=== PATIENT | male | born 1970 | race Caucasian/White ===

== ENCOUNTER → 2017-05-26 | Outpatient (CLI) | payer OTHER ==
[~2017-05-26] MED LIST: ACETAZOLAMIDE250 M2 PO; APAP650 PO; ASPIR 8181 MG PO; ASPIRIN325 PO; ATORVASTATIN CA40 MG PO; EFFEXOR XR150 MG PO; FISH OIL OMEGA1 EAC2 PO; FOLBIC RF TABL1 EACH PO; KLONOPIN0.5 MG PO; LIPITOR 20 MG T20 M1 PO; MAGNESIUM OXID400 MG PO; MAGOX 400400 MG PO; METOPROLOL SUCC25 M1 PO; MINIPRESS2 MG PO; NIACIN 500 MG500 M1 PO; NIACIN SR 250250 MG PO; OLANZAPINE20 MG PO; PRILOSEC OTC20 MG PO; REMERON15 MG PO; STOOL SOFTENER1 EAC2 PO; STOOL SOFTENER100 MG PO; TRICOR145 MG PO; TYLENOL ARTHRI650 MG PO; VITAMIN D3400 UNIT PO; WELCHOL 625 MG625 MG PO; WELLBUTRIN XL150 MG PO; WELLBUTRIN XL300 MG PO
[2017-05-26 12:32] LABS: ALBUMIN 4.2 g/dL (3.4-5.0); ALKALINE PHOSPHATASE 66 U/L (46-116); ANION GAP 9 mmol/L (7-16); BUN 23 mg/dL (7-18); CALCIUM 9.3 mg/dL (8.5-10.1); CHLORIDE 108 mmol/L (98-107); CHOLESTEROL 236 mg/dL (<200); CO2 26 mmol/L (21-32); CREATININE 1.4 mg/dL (0.6-1.3); GLUCOSE 97 mg/dL (70-99); HDL CHOLESTEROL 34 mg/dL (>40); POTASSIUM 4.1 mmol/L (3.5-5.1); SGOT 20 U/L (15-37); SGPT 30 U/L (30-65); SODIUM 143 mmol/L (136-145); TC:HDL 6.9 Ratio (Not establshd); TOTAL BILIRUBIN 0.3 mg/dL (<0.1-1.0); TRIGLYCERIDE 434 mg/dL (<150); VLDL 87 mg/dL (<40)
[2017-05-26 12:35] LABS: LDL CHOLESTEROL ND mg/dL (<100); SERUM ASSESSMENT Clear
[2017-05-27 02:07] LABS: TESTOSTERONE 141 ng/dL (264-916)
== END ==
LOC: M.LAB 11:53
PROVIDERS: Family Medicine
DX: E29.1 Testicular hypofunction (principal)

== ENCOUNTER → 2017-06-27 | Outpatient (CLI) | payer OTHER ==
--- NOTE | 2017-07-01 09:29 | SLEEP ---
[address] [address] SLEEP STUDY REPORT Name: LAURA MALDONADO Room: [facility]#: [id number] Admission: 06/27/17 Attend Phys: Medhat Niocle III, DO Discharge: Date of : 66 Report #: [id number] THIS REPORT FOR: //name// CC: Medhat Nicole This study has been reviewed in its entirety by a board certified sleep specialist DATE OF SERVICE: 06/27/2017 REFERRING PHYSICIAN: Medhat Nicole III, DO. TYPE OF STUDY: Split-night study polysomnography and CPAP titration. INDICATION: Hypersomnia with [place] sleepiness score of 13. METHOD: This was a split-night study where the following parameters were monitored: Frontal, central and occipital EEG; electro-oculogram; submentalis EMG; nasal and oral airflow; anterior tibialis EMG; body position and electrocardiogram. Additionally, thoracic and abdominal movements were recorded by inductance plethysmography. Oxygen saturation was monitored using pulse oximeter. The tracing was scored using 30-second epochs. Hypopneas were scored per the [employer] definition using the 4% desaturation criteria. DIAGNOSTIC PORTION OF THE STUDY: SLEEP DATA: During the diagnostic portion of the study, the patient had 19 apneas and 69 hypopneas, with overall apnea-hypopnea index of 15.1. These episodes were noted in both supine and lateral positions. The average O2 saturation during the diagnostic portion of the study was 95%. The lowest O2 saturation recorded was 81%. During the diagnostic portion of the study, the limb movement index was 62.1. Heart rate was 89 beats per minute. No arrhythmias were recorded. TITRATION PORTION OF THE STUDY: During the titration portion of the study, the patient was titrated on a pressure of 5, 7, 9, 11, 13 and 14 cm of water. At level of 14 cm of water, the patient slept for 120 minutes; of those, 35.5 minutes in supine REM sleep. At this level of CPAP pressure, the patient maintained O2 saturation 91% and above, with apnea-hypopnea index of 0.5. IMPRESSION: The patient with obstructive sleep apnea with apnea-hypopnea index of 15.1 with episodes both in supine and lateral position, with oxygen desaturation to a maryellen of 81%. [place] [address] SLEEP STUDY REPORT Name: LAURA MALDONADO Room: [facility]#: [id number] Admission: 06/27/17 Attend Phys: Medhat Nicole III, DO Discharge: Date of : 66 Report #: [id number] RECOMMENDATIONS: 1. Given the history of hypersomnia, would recommend a trial of CPAP therapy at 14 cm of water with a close clinical followup and data download. 2. Avoid driving or operating machinery while sleepy. 3. Avoid alcohol, sedatives and hypnotics close to bedtime. 4. Recommend maintaining ideal body weight. <ELECTRONICALLY SIGNED> By: Marci Myeers MD 07/01/17 0929 1114 [id number] alec Ferraro
== END ==
LOC: M.SLEEPLAB 19:47
DX: G47.33 Obstructive sleep apnea (adult) (pediatric) (principal)

== ENCOUNTER 2017-11-21 18:33 | Inpatient (IN) | payer OTHER, MEDICARE ==
[~2017-11-21] VITALS: Ht 188 cm; Wt 130.2 kg
[~2017-11-21 18:33] MED LIST changes: -ASPIR 8181 MG PO; -ATORVASTATIN CA40 MG PO; -FISH OIL OMEGA1 EAC2 PO; -FOLBIC RF TABL1 EACH PO; -KLONOPIN0.5 MG PO; -LIPITOR 20 MG T20 M1 PO; -MAGOX 400400 MG PO; -METOPROLOL SUCC25 M1 PO; -NIACIN 500 MG500 M1 PO; -STOOL SOFTENER1 EAC2 PO; -TYLENOL ARTHRI650 MG PO; -VITAMIN D3400 UNIT PO; -WELCHOL 625 MG625 MG PO; -WELLBUTRIN XL150 MG PO; -WELLBUTRIN XL300 MG PO
[2017-11-21 18:38] VITALS: BP 133/98
[2017-11-21 18:57] LABS: HEMATOCRIT 45.7 % (42.0-52.0); HEMOGLOBIN 15.2 gm/dL (14.0-18.0); MCHC 33.2 g/dL (28.0-37.0); MCV 87.4 fL (80.0-100.0); MPV 7.3 fl. (7.2-11.1); NUCLEATED RBCS 0 /100WBC; PLATELET COUNT* 351 thou/uL (150-400); RBC 5.22 mil/uL (4.50-6.00)
[2017-11-21 19:02] LABS: ANION GAP 12 mmol/L (7-16); BUN 22 mg/dL (7-18); CALCIUM 9.4 mg/dL (8.5-10.1); CHLORIDE 109 mmol/L (98-107); CO2 20 mmol/L (21-32); CREATININE 1.4 mg/dL (0.6-1.3); GLUCOSE 100 mg/dL (70-99); POTASSIUM 3.8 mmol/L (3.5-5.1); SODIUM 141 mmol/L (136-145)
[2017-11-21 19:09] LABS: ALBUMIN 4.3 g/dL (3.4-5.0); ALKALINE PHOSPHATASE 57 U/L (46-116); SGOT 24 U/L (15-37); SGPT 32 U/L (30-65); TOTAL BILIRUBIN 0.3 mg/dL (<0.1-1.0); TOTAL PROTEIN 8.5 g/dL (6.4-8.2); TROPONIN-I LEVEL <0.06 ng/mL (<0.06)
[2017-11-21 19:22] LABS: ABSOLUTE EOSINOPHILS 0.1 thou/uL (0.0-0.7); ABSOLUTE LYMPHOCYTES 3.2 thou/uL (0.8-5.3); ABSOLUTE MONOCYTES 0.7 thou/uL (0.0-1.2); PLATELET ESTIMATE ADEQUATE
[2017-11-21 19:27] LABS: INR 1.1; PROTIME 10.7 Seconds (9.20-11.50)
[2017-11-21] MEDS ORDERED: KLONOPIN0.5 MG PO (19:37)
[2017-11-21] MEDS ORDERED: WELLBUTRIN XL300 MG PO (19:37)
[2017-11-21] MEDS ORDERED: METOPROLOL SUCC25 M1 PO (19:37)
[2017-11-21] MEDS ORDERED: TYLENOL ARTHRI650 MG PO (19:38)
[2017-11-21] MEDS ORDERED: LIPITOR 20 MG T20 M1 PO (19:38)
[2017-11-21] MEDS ORDERED: FISH OIL OMEGA1 EAC2 PO (19:39)
[2017-11-21] MEDS ORDERED: STOOL SOFTENER1 EAC2 PO (19:39)
[2017-11-21] MEDS ORDERED: ASPIR 8181 MG PO (19:39)
[2017-11-21] MEDS ORDERED: NIACIN 500 MG500 M1 PO (19:40)
[2017-11-21] MEDS ORDERED: VITAMIN D3400 UNIT PO (19:40)
[2017-11-21] MEDS ORDERED: MAGOX 400400 MG PO (19:40)
[2017-11-21] MEDS ORDERED: FOLBIC RF TABL1 EACH PO (20:41)
[2017-11-21 21:00] VITALS: BP 138/88
[2017-11-21 21:15] VITALS: BP 138/88
[2017-11-21] MEDS ORDERED: WELLBUTRIN XL150 MG PO (21:43)
[2017-11-21 23:31] LABS: URINE BILIRUBIN NEGATIVE (Negative); URINE BLOOD NEGATIVE (Negative); URINE CLARITY CLEAR; URINE COLOR YELLOW; URINE GLUCOSE-RANDOM NEGATIVE (Negative); URINE KETONES NEGATIVE (Negative); URINE LEUKOCYTES-REFLEX NEGATIVE (Negative); URINE NITRITE-REFLEX NEGATIVE (Negative); URINE PROTEIN NEGATIVE (Negative); URINE UROBILINOGEN 0.2 E.U./dl (0.2-1.0)
[2017-11-21 23:40] LABS: AMP/METHAMP Negative (Negative); BARBITURATES Negative (Negative); BENZODIAZEPINES Negative (Negative); COCAINE Negative (Negative); METHADONE Negative (Negative); OPIATES Negative (Negative); PCP Negative (Negative); THC Negative (Negative)
[2017-11-22] VITALS: BP 124/90
[2017-11-22 04:38] VITALS: BP 124/88
[2017-11-22 08:30] VITALS: BP 135/91
[2017-11-22 09:39] LABS: HEMATOCRIT 43.3 % (42.0-52.0); HEMOGLOBIN 14.1 gm/dL (14.0-18.0); MCH 28.6 pg (26.0-34.0); MCHC 32.4 g/dL (28.0-37.0); MCV 88.1 fL (80.0-100.0); MPV 7.1 fl. (7.2-11.1); NUCLEATED RBCS 0 /100WBC; PLATELET COUNT* 322 thou/uL (150-400); RBC 4.92 mil/uL (4.50-6.00); RDW-CV 15.6 % (10.5-14.5); WBC 7.4 thou/uL (4.0-11.0)
[2017-11-22 09:41] LABS: CALCIUM 9.2 mg/dL (8.5-10.1); CREATININE 1.5 mg/dL (0.6-1.3); MAGNESIUM 2.2 mg/dL (1.8-2.4); POTASSIUM 3.8 mmol/L (3.5-5.1)
[2017-11-22 10:17] LABS: ABSOLUTE EOSINOPHILS 0.1 thou/uL (0.0-0.7); ABSOLUTE LYMPHOCYTES 2.4 thou/uL (0.8-5.3); ABSOLUTE MONOCYTES 0.4 thou/uL (0.0-1.2); ABSOLUTE NEUTROPHILS 4.4 thou/uL (1.6-8.1); PLATELET ESTIMATE ADEQUATE
[2017-11-22 11:33] VITALS: BP 146/80
--- NOTE | 2017-11-22 15:07 | 2DMMODE ---
[place] [address] 2 D/M-MODE ECHOCARDIOGRAM Name: LAURA MALDONADO Room: [address] IN [facility]#: [id number] Admission: 11/21/17 Attend Phys: Heidi Montiel, Discharge: Date of : 66 Date of Service: 11/22/17 1507 Report #: [id number] THIS REPORT FOR: //name// APPROVED REPORT Study performed: 11/22/2017 11:00:05 EXAM: Comprehensive 2D, Doppler, and color-flow Echocardiogram Patient Location: In-Patient Room #: [facility] Status: routine BSA: 2.53 HR: 95 bpm BP: 124/88 mmHg Rhythm: NSR Other Information Study Quality: Good Indications CVA/TIA Echo Enhancing Agent Indication: Rule out Shunt Agent(s) / Amount(s) Used: Agitated Saline 10 cc 2D Dimensions LVEF(%): 84.12 (>50%) IVSd: 12.56 (7-11mm) LVOT Diam: 20.97 (18-24mm) LVDd: 41.47 mm PWd: 10.20 (7-11mm) Ascending Ao: 29.58 (22-36mm) LVDs: 19.61 (25-40mm) Aortic Root: 29.52 mm Avila's LVEF: 84.12 % Volumes Left Atrial Volume (Systole) LA ESV Index: 14.40 mL/m2 Aortic Valve AoV Peak Shaq.: 1.40 m/s AO Peak Gr.: 7.83 mmHg LVOT Max P.55 mmHg AO Mean Gr.: 4.85 mmHg LVOT Mean P.71 mmHg LVOT Max V: 1.18 m/s AO V2 VTI: 20.00 cm LVOT Mean V: 0.76 m/[place] [address] 2 D/M-MODE ECHOCARDIOGRAM Name: LAURA MALDONADO Room: [address] IN .R.#: [id number] Admission: 11/21/17 Attend Phys: Heidi Montiel, Discharge: Date of : 66 Date of Service: 11/22/17 1507 Report #: [id number] CHARLIE (VTI): 3.24 cm2 LVOT V1 VTI: 18.76 cm Mitral Valve E/A Ratio: 0.78 MV Decel. Time: 254.85 ms MV E Max Shaq.: 0.54 m/s MV PHT: 73.91 ms MVA (PHT): 2.98 cm2 TDI E/Lateral E': 4.50 E/Medial E': 6.75 Medial E' Shaq.: 0.08 m/s Lateral E' Shaq.: 0.12 m/s Pulmonary Valve PV Peak Shaq.: 1.04 m/s PV Peak Gr.: 4.32 mmHg Tricuspid Valve RAP Estimate: 5.00 mmHg TR Peak Gr.: 21.68 mmHg RVSP: 26.68 mmHg PA Pressure: 26.68 mmHg Left Ventricle The left ventricle is normal size. There is normal LV segmental wall motion. There is normal left ventricular wall thickness. Left ventricular systolic function is normal. The left ventricular ejection fraction is within the normal range. LVEF is 65-70%. Grade I - abnormal relaxation pattern. Right Ventricle The right ventricle is normal size. The right ventricular systolic function is normal. Atria The left atrium size is normal. Interatrial septum is intact without evidence of ASD or PFO. The right atrium size is normal. Aortic Valve The aortic valve is normal in structure. No aortic regurgitation is present. There is no aortic valvular stenosis. Mitral Valve The mitral valve is normal in structure. There is no mitral valve regurgitation noted. No evidence of mitral valve stenosis. [place] [address] 2 D/M-MODE ECHOCARDIOGRAM Name: LAURA MALDONADO Room: [address] IN M.R.#: [id number] Admission: 11/21/17 Attend Phys: Heidi Montiel, Discharge: Date of : 66 Date of Service: 11/22/17 1507 Report #: [id number] The tricuspid valve is normal in structure. Trace tricuspid regurgitation. No pulmonary hypertension. Pulmonic Valve The pulmonary valve is normal in structure. There is no pulmonic valvular regurgitation. Great Vessels The aortic root is normal in size. IVC is not visualized. Pericardium There is no pericardial effusion. <Conclusion> The left ventricle is normal size. There is normal left ventricular wall thickness. Left ventricular systolic function is normal. The left ventricular ejection fraction is within the normal range. LVEF is 65-70%. Grade I - abnormal relaxation pattern. The right ventricle is normal size. The left atrium size is normal. The aortic valve is normal in structure. The mitral valve is normal in structure. The tricuspid valve is normal in structure. There is no pericardial effusion. There is normal LV segmental wall motion. <ELECTRONICALLY SIGNED> By: Medhat Lopez MD, FACC 11/22/17 1507 1507 1507 Medhat Lopez MD, FACC /INF
[2017-11-22 15:12] VITALS: BP 135/90
--- NOTE | 2017-11-22 17:25 | EKG ---
[place] [address] ELECTROCARDIOGRAM REPORT Name: LAURA MALDONADO Room: [address] ADM IN .R.#: [id number] Admission: 11/21/17 Attend Phys: Heidi Montiel MD Discharge: Date of : 66 Report #: [id number] THIS REPORT FOR: //name// [facility] ED Test Date: 2017-11-21 Test Time: 18:41:24 Pat Name: LAURA MLADONADO Department: Room: [facility] Gender: M Alliance Manager: Eva HUERTA : 1970 Requested By: Martin Shaw Order Number: [id number] MD: Freddy Alatorre Measurements Intervals [place] Rate: 116 P: 61 [place]: 164 QRS: 6 QRSD: 108 T: 194 QT: 282 QTc: 392 Interpretive Statements Sinus tachycardia Low voltage, precordial leads Nonspecific T abnormalities, diffuse leads Compared to ECG 11/29/2014 21:27:05 Low QRS voltage now present T-wave abnormality now present Sinus rhythm no longer present Electronically Signed On 11-22-2017 17:25:23 CDT by Freddy Alatorre [email or web address] <ELECTRONICALLY SIGNED> By: Freddy Alatorre MD, FAC 11/22/17 1725 1841 1841 Freddy Alatorre MD, [facility] /EPI
[2017-11-22 20:25] VITALS: BP 134/81
[2017-11-23] VITALS: BP 120/69
[2017-11-23 04:43] VITALS: BP 130/84
[2017-11-23 06:06] LABS: CHOLESTEROL 220 mg/dL (<200); HDL CHOLESTEROL 28 mg/dL (>40); TC:HDL 7.9 Ratio (Not establshd); TRIGLYCERIDE 569 mg/dL (<150); VLDL 114 mg/dL (<40)
[2017-11-23 06:11] LABS: SERUM ASSESSMENT Moderate Lipemia
[2017-11-23 08:00] VITALS: BP 140/86
[2017-11-23] MEDS ORDERED: WELCHOL 625 MG625 MG PO (08:50)
[2017-11-23] MEDS ORDERED: NIACIN 500 MG500 M1 PO (08:50)
[2017-11-23] MEDS ORDERED: ATORVASTATIN CA40 MG PO (08:50)
[2017-11-23 11:14] VITALS: BP 140/86
[2017-11-24 03:08] LABS: GLYCOHEMOGLOBIN (HGB A1C) 5.4 % (4.8-5.6)
== END 2017-11-23 12:25 | disposition home or self-care (01) | DRG 896 ==
LOC: M.ERS 18:33 → M.TBA-ER 20:06 → M.2W 20:06
PROVIDERS: Emergency Medicine; Emergency Medicine Emergency Medical Services; Internal Medicine; ADMIT Internal Medicine
DX: F13.239 Sedative, hypnotic or anxiolytic dependence with withdrawal, unspecified (principal); G92 Toxic encephalopathy; G45.9 Transient cerebral ischemic attack, unspecified; F31.30 Bipolar disorder, current episode depressed, mild or moderate severity, unspecified; E66.9 Obesity, unspecified; K21.9 Gastro-esophageal reflux disease without esophagitis; E78.5 Hyperlipidemia, unspecified; G47.30 Sleep apnea, unspecified; H81.09 Meniere's disease, unspecified ear; E78.1 Pure hyperglyceridemia; K31.84 Gastroparesis; I10 Essential (primary) hypertension; T43.225A Adverse effect of selective serotonin reuptake inhibitors, initial encounter; Y92.89 Other specified places as the place of occurrence of the external cause; Z68.36 Body mass index [BMI] 36.0-36.9, adult; Z98.52 Vasectomy status; Z99.81 Dependence on supplemental oxygen; Z82.49 Family history of ischemic heart disease and other diseases of the circulatory system; Z79.899 Other long term (current) drug therapy; Z79.82 Long term (current) use of aspirin

== ENCOUNTER → 2018-05-16 | Outpatient (CLI) | payer OTHER, MEDICARE ==
[~2018-05-16] MED LIST changes: +ASPIR 8181 MG PO; +ATORVASTATIN CA40 MG PO; +FISH OIL OMEGA1 EAC2 PO; +FOLBIC RF TABL1 EACH PO; +KLONOPIN0.5 MG PO; +LIPITOR 20 MG T20 M1 PO; +MAGOX 400400 MG PO; +METOPROLOL SUCC25 M1 PO; +NIACIN 500 MG500 M1 PO; +STOOL SOFTENER1 EAC2 PO; +TYLENOL ARTHRI650 MG PO; +VITAMIN D3400 UNIT PO; +WELCHOL 625 MG625 MG PO; +WELLBUTRIN XL150 MG PO; +WELLBUTRIN XL300 MG PO
[2018-05-16 13:20] LABS: HEMATOCRIT 46.3 % (42.0-52.0); HEMOGLOBIN 15.3 gm/dL (14.0-18.0); MCH 28.7 pg (26.0-34.0); RBC 5.32 mil/uL (4.50-6.00); RDW-CV 14.9 % (10.5-14.5); WBC 7.9 thou/uL (4.0-11.0)
[2018-05-16 13:36] LABS: ALKALINE PHOSPHATASE 60 U/L (46-116); ANION GAP 11 mmol/L (7-16); BUN 17 mg/dL (7-18); CALCIUM 9.1 mg/dL (8.5-10.1); CHLORIDE 102 mmol/L (98-107); CHOLESTEROL 235 mg/dL (<200); CO2 21 mmol/L (21-32); CREATININE 1.6 mg/dL (0.6-1.3); GLUCOSE 94 mg/dL (70-99); HDL CHOLESTEROL 23 mg/dL (>40); SGOT 27 U/L (15-37); SGPT 35 U/L (30-65); SODIUM 134 mmol/L (136-145); TC:HDL 10.2 Ratio (Not establshd); TOTAL BILIRUBIN 0.2 mg/dL (<0.1-1.0); TOTAL PROTEIN 7.7 g/dL (6.4-8.2); TRIGLYCERIDE 468 mg/dL (<150); VLDL 94 mg/dL (<40)
[2018-05-16 13:37] LABS: LDL CHOLESTEROL ND mg/dL (<100); SERUM ASSESSMENT Clear
[2018-05-16 21:07] LABS: TESTOSTERONE 1378 ng/dL (264-916)
== END ==
LOC: M.LAB 13:03
PROVIDERS: Nurse Practitioner Family
DX: Z12.5 Encounter for screening for malignant neoplasm of prostate (principal); E78.49 Other hyperlipidemia; E29.1 Testicular hypofunction; I10 Essential (primary) hypertension

== ENCOUNTER 2019-01-25 16:57 | Inpatient (IN) | payer OTHER, MEDICARE ==
[~2019-01-25] VITALS: Ht 188 cm; Wt 132.9 kg
[2019-01-25 17:01] VITALS: BP 144/79
[2019-01-25 17:32] LABS: ABSOLUTE BASOPHILS 0.1 thou/uL (0.0-0.2); ABSOLUTE EOSINOPHILS 0.2 thou/uL (0.0-0.7); ABSOLUTE LYMPHOCYTES 2.3 thou/uL (0.8-5.3); ABSOLUTE MONOCYTES 0.5 thou/uL (0.0-1.2); ABSOLUTE NEUTROPHILS 3.1 thou/uL (1.6-8.1); EOSINOPHILS 2.7 %; HEMATOCRIT 40.3 % (42.0-52.0); HEMOGLOBIN 13.9 gm/dL (14.0-18.0); MCH 29.2 pg (26.0-34.0); MCHC 34.4 g/dL (28.0-37.0); MCV 84.8 fL (80.0-100.0); MONOCYTES 7.5 %; MPV 7.1 fl. (7.2-11.1); NUCLEATED RBCS 0 /100WBC; PLATELET COUNT* 325 thou/uL (150-400); POLYS 50.8 %; RBC 4.76 mil/uL (4.50-6.00); WBC 6.1 thou/uL (4.0-11.0)
[2019-01-25 17:38] LABS: PROTIME 10.7 Seconds (9.20-11.50)
[2019-01-25 17:48] LABS: ALBUMIN 3.6 g/dL (3.4-5.0); CALCIUM 8.5 mg/dL (8.5-10.1); CREATININE 1.2 mg/dL (0.6-1.3); POTASSIUM 3.8 mmol/L (3.5-5.1); TOTAL BILIRUBIN 0.2 mg/dL (<0.1-1.0); TOTAL PROTEIN 6.9 g/dL (6.4-8.2)
[2019-01-25 20:15] VITALS: BP 130/75
[2019-01-25 20:20] VITALS: BP 122/67
[2019-01-26] VITALS (7 sets, daily range): BP systolic 111–136; BP diastolic 69–94
--- NOTE | 2019-01-26 00:29 | NUR ---
PT ADMITTED TO ROOM 211 AT 2014 FOR CHEST PAIN. PT ABLE TO STAND AND TRANSFER FROM [facility] TO BED INDEPENDENTLY. PT ORIENTED TO BED CONTROLS, CALL LIGHT AND ROOM. AT MIDNIGHT PT REPORTED CHEST PAIN INVOLVING RIGHT ARM. PT STATES PAIN WAS THE SAME IN NATURE. PT GIVEN ONE NITRO SUBLINGUAL. [address] RIOS NOTIFIED AT 00:15. ORDERS RECIEVED FOR SERIAL TROPONINS X3. LAB NOTIFIED. CHEST PAIN RESOLVED AFTER ONE NITRO SL.
[2019-01-26 01:02] LABS: CALCIUM 9.4 mg/dL (8.5-10.1); CREATININE 1.3 mg/dL (0.6-1.3); MAGNESIUM 1.9 mg/dL (1.8-2.4); POTASSIUM 3.9 mmol/L (3.5-5.1)
[2019-01-26 10:00] LABS: CHOLESTEROL 191 mg/dL (<200); HDL CHOLESTEROL 30 mg/dL (>40); LDL CHOLESTEROL 89 mg/dL (<100); SERUM ASSESSMENT Clear; TC:HDL 6.4 Ratio (Not establshd); TRIGLYCERIDE 364 mg/dL (<150); VLDL 73 mg/dL (<40)
--- NOTE | 2019-01-26 12:25 | NUR ---
Pt is A&O. Resides at home with his . Independent, but does not drive. Pt has a cane and walker for mobility. Pt has a cpap through [facility]. No hx of HH or SNF. Pt scheduled to have a cath today. Goal is home at ri, no needs anticipated.
[2019-01-26 14:21] LABS: AMP/METHAMP Negative (Negative); BARBITURATES Negative (Negative); BENZODIAZEPINES Negative (Negative); COCAINE Negative (Negative); METHADONE Negative (Negative); OPIATES Negative (Negative); PCP Negative (Negative); THC Negative (Negative)
--- NOTE | 2019-01-26 18:00 | NUR ---
PATINET RESTING IN BED. POST CATH WRIST BAND IN PLACE AND SLOWLY REMOVING AIR. VSS AND PATINET IN NOAPPARNET DISTRESS. DENIES CHEST PAIN. HOURLY ROUNDING COMPLETD FOR PATINET SAFETY.
[2019-01-27 00:41] VITALS: BP 133/88
[2019-01-27 03:51] VITALS: BP 134/79
[2019-01-27 04:16] LABS: HEMATOCRIT 41.4 % (42.0-52.0); HEMOGLOBIN 13.7 gm/dL (14.0-18.0); MCH 28.2 pg (26.0-34.0); MCHC 33.1 g/dL (28.0-37.0); MCV 85.2 fL (80.0-100.0); RBC 4.86 mil/uL (4.50-6.00); RDW-CV 14.2 % (10.5-14.5); WBC 7.9 thou/uL (4.0-11.0)
[2019-01-27 04:37] LABS: ALBUMIN 3.6 g/dL (3.4-5.0); CALCIUM 9.1 mg/dL (8.5-10.1); CREATININE 1.3 mg/dL (0.6-1.3); POTASSIUM 3.8 mmol/L (3.5-5.1); TOTAL BILIRUBIN 0.3 mg/dL (<0.1-1.0); TOTAL PROTEIN 6.9 g/dL (6.4-8.2); TROPONIN-I LEVEL 0.41 ng/mL (<0.06)
[2019-01-27 08:00] VITALS: BP 131/88
[2019-01-27] MEDS ORDERED: EFFIENT10 MG PO (10:28)
--- NOTE | 2019-01-27 10:55 | CARD ---
[address] [address] CARDIAC CATH REPORT Name: LAURA MALDONADO Room: [address] IN .R.#: [id number] Admission: 01/25/19 Attend Phys: Ivon robertson [place] Discharge: Date of : 66 Report #: [id number] THIS REPORT FOR: //name// APPROVED REPORT Study performed: 01/26/2019 13:10:42 Patient Details Patient Status: In-Patient Room #: The patient is a 48 year-old male Event Personnel Medhat Lopez Literacy Coach, Niki Elizondo RN RN, Luiz Milton Scrub, Analilia Menezes RTR Monitor Procedures Performed Art Access - R radial artery Left Heart Cath w/or w/o Coronaries [id number] [facility] N[address] Place w/wo Plasty Single [place] [id number] , Indication Unstable angina Risk Factors Obesity, Hypercholesterolemia, Hypertension Admission/Lab Medications/Medications given during procedure Aspirin PO 162 mg, Effient PO 60 mg, Angiomax IV 20 mg per kg, Angiomax Drip IV 39.5 ml per hr Procedure Narrative The patient was brought electively to the Cardiac Catheterization Laboratory and was prepped and draped in a sterile manner. The right wrist was infiltrated with 2% Lidocaine subcutaneous anesthesia. A 6F Slender Glidesheath sheath was inserted into the right radial artery. Coronary angiography was performed using coronary diagnostic catheters. The right coronary system was accessed and visualized with a 6F 3DRC catheter. The left coronary system was accessed and visualized with a 6f Radial [place] catheter. The left ventricle was accessed and visualized with a 6f 3DRC catheter. Left ventricular/Aortic Valve gradient assessed via catheter pullback. Closure device was deployed with a Fr Vasc-Band Reg 24cm. The patient tolerated the procedure well and there were no complications associated with the procedure. There was no hematoma. Intra[place] [address] CARDIAC CATH REPORT Name: LAURA MALDONADO Room: [address] IN .R.#: [id number] Admission: 01/25/19 Attend Phys: Ivon robertson [place] Discharge: Date of : 66 Report #: [id number] Sedation start time: 13:40 Case end Time: 14:28 Fentanyl 25 mcg Versed 2 mg Fluoro Time: 13.9 minutes Dose: DAP 536130 cGycm2 2147 mGy Contrast Type and Amount: Visipaque 190 ml Coronary Angiography The patient's coronary anatomy is right dominant. Diagnostic Cath Left Main 0% narrowing LAD 30% mid LAD narrowing Circumflex 40% mid circumflex narrowing with 90% proximal first marginal stenosis Right Coronary Dominant vessel with 30% proximal and mid vessel narrowing Hemodynamics The aortic pressure is 136/73 mmHg with a mean of 88 mmHg. The left ventricular pressure is 124/-5 mmHg with a mean of mmHg. The left ventricular end diastolic pressure is 17 mmHg. There was no gradient across the aortic valve upon pullback. PCI Technique Lesion Anticoagulation was achieved with Heparin. Patient was preloaded with Heparin IV 7000 units. Percutaneous coronary intervention was performed on the first obtuse marginal branch segment. The lesion stenosis prior to intervention was 90% with CORY 3 flow. A 6F XB LAD 3.5 Guide Catheter was used to engage the LCA ostium. A IG: BMW 190cm Interventional Guidewire was used to cross the lesion. STENT DEPLOYMENT A drug-eluting stent Ghassan RX Stent 2.0X15mm was inserted and inflated up to 12.00atm for 16seconds. Additional Inflation: 14.00atm for 26seconds. Additional Inflation: 15.00atm for 9seconds. Final angiography reveals 0 % stenosis with CORY 3 flow. Conclusion #1 significant coronary artery disease characterized by the following: A 30% [place] [address] CARDIAC CATH REPORT Name: LAURA MALDONADO Room: [address] IN [facility]#: [id number] Admission: 01/25/19 Attend Phys: Ivon Dyson Discharge: Date of : 66 Report #: [id number] B 40% mid circumflex narrowing with 90% proximal first marginal stenosis C dominant right coronary artery with 30% proximal and mid vessel narrowing #2 modest elevation of left ventricular end-diastolic pressure at rest #3 successful percutaneous coronary intervention with deployment of drug-eluting stent at site of 90% first marginal stenosis with 0% residual narrowing and CORY-3 flow to the distal vessel Recommendations Cardiac Risk Reduction Program Aggressive Medical Therapy Medications Administered Aspirin (any) Prasugrel Diagnostic Cath Approved by: Medhat Lopez MD Date/Time: 01/27/2019 10:53:56 <ELECTRONICALLY SIGNED> By: Medhat Lopez MD, [facility] 01/27/19 1054 1054 1054Medhat Lopez MD, [facility] /INF
--- NOTE | 2019-01-27 11:32 | D ---
[address] [address] DISCHARGE SUMMARY Name: LAURA MALDONADO Room: [address] IN M.R.#: [id number] Admission: 01/25/19 Attend Phys: Ivon Dyson Discharge: Date of : 66 Report #: [id number] THIS REPORT FOR: //name// CC: Ivon Kennedy DATE OF SERVICE: 01/27/2019 FINAL DISCHARGE DIAGNOSES: 1. Unstable angina. 2. Coronary artery disease. 3. Status post percutaneous coronary intervention to the first marginal branch of the circumflex. 4. Hypertension. 5. Hyperlipidemia. 6. Meniere disease. 7. Exogenous obesity. 8. Gastroesophageal reflux disease. PROCEDURES: On 01/26/2019 -- left heart catheterization, left ventriculography, selective coronary arteriography, and percutaneous coronary intervention with deployment of 1 drug-eluting stent in the first marginal branch of the circumflex. The patient is a very pleasant 48-year-old male who presented with episodes of chest discomfort, which he described as a pressure in his chest with radiation and achiness in the left arm, responsive to sublingual nitrates. He has underlying hyperlipidemia, hypertension, and weight excess. In that setting, I performed cardiac catheterization on 01/26/2019 which revealed 90% tandem first marginal stenosis in the circumflex with mild mid circumflex, right and [place] LAD disease. The left main was normal. In this setting, I performed percutaneous coronary intervention, deploying one 2.0 x 15 mm Switchback drug-eluting stent in the first marginal branch of the circumflex with 0% residual narrowing. The patient did well post-procedurally with good hemostasis at the right radial site of catheterization. Laboratory data on 01/27 revealed a sodium 138, potassium 3.8, BUN 17, and creatinine 1.3. Hemoglobin 13.7, white blood cell count 7900 with 306,000 platelets. He ambulated in the hallways without difficulty. Of note, troponin jannie inconsequentially to 0.41. DISCHARGE MEDICATIONS: The patient [place] [address] DISCHARGE SUMMARY Name: LAURA MALDONADO Room: [address] IN [facility]#: [id number] Admission: 01/25/19 Attend Phys: Ivon Dyson Discharge: Date of : 66 Report #: [id number] medications: Welchol 625 mg b.i.d., fenofibrate 145 mg daily, magnesium oxide 800 mg daily, metoprolol succinate 25 mg daily, niacin 500 mg b.i.d., olanzapine 15 mg at bedtime, omega-3 fatty acids 1200 mg 1 tablet daily, magnesium, omeprazole 20 mg b.i.d., prasugrel or Effient 10 mg daily with a 60 mg familia-procedural dose, prazosin or Minipress 2 mg at bedtime, docusate 3 tablets b.i.d., Effexor 150 mg b.i.d., p.r.n. sublingual nitroglycerin, and aspirin 81 mg daily. The patient is scheduled to see my nurse practitioner, Erma Etienne, on 02/12/2019 at 1000 hours and myself on 05/29/2019 at 1100 hours. Therefore, the patient was discharged to home in stable condition on the aforementioned medications with followups as iterated above. <ELECTRONICALLY SIGNED> By: Medhat Lopez MD, FACC 01/27/19 1132 1023 1036Jobacilio Lopez MD, FAC /nt
[2019-01-27] MEDS ORDERED: NITROGLYCERIN0.4 MG SUBLING (11:36)
[2019-01-27 12:00] VITALS: BP 125/79
--- NOTE | 2019-01-27 14:01 | NUR ---
PT VSS, PT SR TO SINUS TACH ON TELE, A&OX4, HOURLY ROUNDING PERFORMED, POSSESSIONS AND CALL LIGHT WITHIN REACH. REMOVED RAD STAT WITHOUT COMPLICATION. REC DISCHARGE ORDERS. REVIEWED DISCHARGE PACKET WITH PT. ALL QUESTIONS ANSWERED, HARD SCRIPTS GIVEN TO PT WITH CARENOTES. TELE MONITOR REMOVED, IV REMOVED WITHOUT COMPLICATION. PT WALKED TO THE FRONT DOOR WITH NURSING STAFF AND PICKED UP BY SPOUSE.
--- NOTE | 2019-01-27 14:12 | EKG ---
[place] [address] ELECTROCARDIOGRAM REPORT Name: LAURA MALDONADO Room: [address] ADM IN M.R.#: [id number] Admission: 01/25/19 Attend Phys: Ivon Dyson Discharge: Date of : 66 Report #: [id number] THIS REPORT FOR: //name// [facility] ED Test Date: 2019-01-25 Test Time: 17:03:33 Pat Name: LAURA MALDONADO Department: Room: [facility] Gender: M Basket Filler: : 1970 Requested By: Kiran Eng Order Number: [id number] MD: Joshua Vitale Measurements Intervals [place] Rate: 78 P: 41 TN: 152 QRS: -6 QRSD: 102 T: 27 QT: 361 QTc: 412 Interpretive Statements Sinus rhythm Low voltage, precordial leads RSR' in V1 or V2, right VCD or RVH Consider anterior infarct Baseline wander in lead(s) V1 Compared to ECG 11/21/2017 18:41:24 Right ventricular hypertrophy now present RSR' in V1 or V2 now present Myocardial infarct finding now present Sinus tachycardia no longer present T-wave abnormality no longer present Electronically Signed On 01-27-2019 14:12:20 CDT by Joshua Vitale [email or web address] <ELECTRONICALLY SIGNED> By: Stepan Vitale MD, FACC 01/27/19 1412 02 02 Stepan Vitale MD, [facility] /EPI
--- NOTE | 2019-01-27 14:20 | EKG ---
[place] [address] ELECTROCARDIOGRAM REPORT Name: LAURA MALDONADO Room: [address] ADM IN M.R.#: [id number] Admission: 01/25/19 Attend Phys: Ivon Dyson Discharge: Date of : 66 Report #: [id number] THIS REPORT FOR: //name// [facility] Test Date: 2019-01-26 Test Time: 00:13:41 Pat Name: LAURA MALDONADO Department: Room: [address] Gender: M Stone Hand: : 1970 Requested By: Ivon Allen Order Number: [id number] Reading MD: Joshua Vitale Measurements Intervals [place] Rate: 73 P: 39 [place]: 153 QRS: -7 QRSD: 101 T: 19 QT: 366 QTc: 404 Interpretive Statements Sinus rhythm Low voltage, precordial leads Borderline T wave abnormalities Compared to ECG 11/21/2017 18:41:24 Sinus tachycardia no longer present T-wave abnormality still present Electronically Signed On 01-27-2019 14:20:21 CDT by Joshua Vitale [email or web address] <ELECTRONICALLY SIGNED> By: Stepan Vitale MD, [facility] 01/27/19 1420 0013 0013 Setpan Vitale MD, [facility] /EPI
--- NOTE | 2019-01-29 10:59 | EKG ---
[place] [address] ELECTROCARDIOGRAM REPORT Name: LAURA MALDONADO Room: [address] DIS IN M.R.#: [id number] Admission: 01/25/19 Attend Phys: Ivon Dyson Discharge: 01/27/19 Date of : 66 Report #: [id number] THIS REPORT FOR: //name// [facility] Test Date: 2019-01-26 Test Time: 15:40:59 Pat Name: LAURA MALDONADO Department: Room: [address] Gender: M Drafting Instructor: MELIA : 1970 Requested By: Medhat Lopez Order Number: [id number] MD: Saroj Saravia Measurements Intervals [place] Rate: 68 P: 33 [place]: 164 QRS: -4 QRSD: 110 T: 6 QT: 392 QTc: 417 Interpretive Statements Sinus rhythm Low voltage, precordial leads Compared to ECG 01/26/2019 00:13:41 T-wave abnormality no longer present Electronically Signed On 01-29-2019 10:59:34 CDT by Saroj Saravia [email or web address] <ELECTRONICALLY SIGNED> By: Saroj Saravia MD, FACC 01/29/19 1059 1540 1540 Saroj Saravia MD, FAC /EPI
== END 2019-01-27 12:15 | disposition home or self-care (01) | DRG 247 ==
LOC: M.ERS 16:57 → M.2W 18:07 → M.TBA-ER 18:07 → M.2W 20:49
PROVIDERS: Emergency Medicine; Internal Medicine; Registered Nurse; ADMIT Family Medicine
PROC: B215YZZ Fluoroscopy of Left Heart using Other Contrast (ICD-10-PCS; principal; 2019-01-26)
PROC: 027034Z Dilation of Coronary Artery, One Artery with Drug-eluting Intraluminal Device, Percutaneous Approach (ICD-10-PCS; principal; 2019-01-26)
PROC: 4A023N7 Measurement of Cardiac Sampling and Pressure, Left Heart, Percutaneous Approach (ICD-10-PCS; principal; 2019-01-26)
PROC: B211YZZ Fluoroscopy of Multiple Coronary Arteries using Other Contrast (ICD-10-PCS; principal; 2019-01-26)
DX: I25.110 Atherosclerotic heart disease of native coronary artery with unstable angina pectoris (principal); F32.9 Major depressive disorder, single episode, unspecified; I10 Essential (primary) hypertension; E78.5 Hyperlipidemia, unspecified; H81.09 Meniere's disease, unspecified ear; E66.09 Other obesity due to excess calories; K21.9 Gastro-esophageal reflux disease without esophagitis; E78.1 Pure hyperglyceridemia; F41.1 Generalized anxiety disorder; Z98.52 Vasectomy status; Z95.5 Presence of coronary angioplasty implant and graft; Z82.49 Family history of ischemic heart disease and other diseases of the circulatory system; Z68.37 Body mass index [BMI] 37.0-37.9, adult

== ENCOUNTER → 2019-11-26 | Outpatient (CLI) | payer OTHER ==
[~2019-11-26] MED LIST changes: +EFFIENT10 MG PO; +NITROGLYCERIN0.4 MG SUBLING
[2019-11-26 13:03] LABS: HEMATOCRIT 44.1 % (42.0-52.0); HEMOGLOBIN 15.1 gm/dL (14.0-18.0); MCH 28.6 pg (26.0-34.0); MCHC 34.3 g/dL (28.0-37.0); MCV 83.2 fL (80.0-100.0); MPV 6.5 fl. (7.2-11.1); NUCLEATED RBCS 0 /100WBC; PLATELET COUNT* 391 thou/uL (150-400); WBC 6.4 thou/uL (4.0-11.0)
[2019-11-26 13:11] LABS: URINE BILIRUBIN NEGATIVE (Negative); URINE BLOOD NEGATIVE (Negative); URINE CLARITY CLEAR; URINE COLOR YELLOW; URINE GLUCOSE-RANDOM NEGATIVE (Negative); URINE KETONES NEGATIVE (Negative); URINE LEUKOCYTES-REFLEX NEGATIVE (Negative); URINE NITRITE-REFLEX NEGATIVE (Negative); URINE PROTEIN NEGATIVE (Negative); URINE SPECIFIC GRAVITY 1.025 (1.005-1.030); URINE UROBILINOGEN 0.2 E.U./dl (0.2-1.0)
[2019-11-26 13:27] LABS: ALBUMIN 4.3 g/dL (3.4-5.0); ALKALINE PHOSPHATASE 70 U/L (46-116); ANION GAP 11 mmol/L (7-16); BUN 20 mg/dL (7-18); CALCIUM 9.2 mg/dL (8.5-10.1); CHLORIDE 102 mmol/L (98-107); CHOLESTEROL 223 mg/dL (<200); CO2 25 mmol/L (21-32); CREATININE 1.4 mg/dL (0.6-1.3); GLUCOSE 93 mg/dL (70-99); HDL CHOLESTEROL 34 mg/dL (>40); POTASSIUM 4.6 mmol/L (3.5-5.1); SGOT 31 U/L (15-37); SGPT 42 U/L (30-65); SODIUM 138 mmol/L (136-145); TC:HDL 6.6 Ratio (Not establshd); TOTAL BILIRUBIN 0.3 mg/dL (<0.1-1.0); TOTAL PROTEIN 8.3 g/dL (6.4-8.2); TRIGLYCERIDE 438 mg/dL (<150); VLDL 88 mg/dL (<40)
[2019-11-26 13:28] LABS: LDL CHOLESTEROL ND mg/dL (<100); SERUM ASSESSMENT Clear
[2019-11-26 13:30] LABS: ABSOLUTE BASOPHILS 0.1 thou/uL (0.0-0.2); ABSOLUTE EOSINOPHILS 0.1 thou/uL (0.0-0.7); ABSOLUTE LYMPHOCYTES 3.2 thou/uL (0.8-5.3); ABSOLUTE MONOCYTES 0.4 thou/uL (0.0-1.2); ABSOLUTE NEUTROPHILS 2.6 thou/uL (1.6-8.1); PLATELET ESTIMATE ADEQUATE
== END ==
LOC: M.LAB 12:20
PROVIDERS: ATTEND Family Medicine
DX: I10 Essential (primary) hypertension (principal); R25.1 Tremor, unspecified

== ENCOUNTER → 2019-12-03 | Outpatient (CLI) | payer OTHER | LOC: M.MRI 11:30 | PROVIDERS: ATTEND Family Medicine | DX: M51.27 Other intervertebral disc displacement, lumbosacral region (principal); M25.78 Osteophyte, vertebrae; M48.07 Spinal stenosis, lumbosacral region; M54.31 Sciatica, right side; M47.816 Spondylosis without myelopathy or radiculopathy, lumbar region ==

== ENCOUNTER → 2020-02-26 | Outpatient (CLI) | payer OTHER, MEDICARE | LOC: M.MRI 11:21 | PROVIDERS: ATTEND Family Medicine | DX: S83.242A Other tear of medial meniscus, current injury, left knee, initial encounter (principal); M25.462 Effusion, left knee; M71.22 Synovial cyst of popliteal space [Baker], left knee; X58.XXXA Exposure to other specified factors, initial encounter; Y93.89 Activity, other specified; Y92.89 Other specified places as the place of occurrence of the external cause; Y99.8 Other external cause status ==

== ENCOUNTER → 2020-03-07 | Outpatient (CLI) | payer OTHER | LOC: M.LAB 09:59 | PROVIDERS: ATTEND Internal Medicine Gastroenterology | DX: Z12.11 Encounter for screening for malignant neoplasm of colon (principal); Z20.828 Contact with and (suspected) exposure to other viral communicable diseases ==

== ENCOUNTER 2021-01-11 09:20 | Inpatient (IN) | payer OTHER, MEDICARE ==
[~2021-01-11] VITALS: Ht 188 cm; Wt 131.3 kg
[~2021-01-11 09:20] MED LIST changes: +WELLBUTRIN SR150 MG PO; -WELLBUTRIN XL150 MG PO; -WELLBUTRIN XL300 MG PO
[2021-01-11 09:28] VITALS: BP 115/68
[2021-01-11 09:52] LABS: HEMATOCRIT 41.7 % (42.0-52.0); HEMOGLOBIN 13.8 gm/dL (14.0-18.0); MCH 27.9 pg (26.0-34.0); MCV 84.5 fL (80.0-100.0); MPV 6.7 fl. (7.2-11.1); NUCLEATED RBCS 0 /100WBC; PLATELET COUNT* 331 thou/uL (150-400); RBC 4.93 mil/uL (4.50-6.00); RDW-CV 14.2 % (10.5-14.5)
[2021-01-11 10:04] LABS: ANION GAP 8 mmol/L (7-16); BUN 16 mg/dL (7-18); CALCIUM 8.9 mg/dL (8.5-10.1); CHLORIDE 105 mmol/L (98-107); CO2 26 mmol/L (21-32); CREATININE 1.2 mg/dL (0.6-1.3); GLUCOSE 96 mg/dL (70-99); POTASSIUM 4.4 mmol/L (3.5-5.1); SODIUM 139 mmol/L (136-145)
--- NOTE | 2021-01-11 10:15 | EKG ---
[place] [address] ELECTROCARDIOGRAM REPORT Name: LAURA MALDONADO Room: [facility]16 ADM IN ..#: [id number] Admission: 01/11/21 Attend Phys: Jose Caldera, Discharge: Date of : 66 Date of Service: 01/11/21919 Report #: [id number] THIS REPORT FOR: //name// [facility] ED Test Date: 2021-01-11 Test Time: 09:20:16 Pat Name: LAURA MALDONADO Department: Room: [facility] Gender: M Quality Assurance Intern: SHARONDA : 1970 Requested By: Tristan Box Order Number: [id number] MD: Joshua Vitale Measurements Intervals [place] Rate: 60 P: 0 MD: 158 QRS: 7 QRSD: 113 T: 12 QT: 383 QTc: 383 Interpretive Statements Sinus rhythm Incomplete right bundle branch block Artifact in lead(s) II,III,aVR,aVL,aVF,V1,V2,V3,V4,V5,V6 Compared to ECG 01/26/2019 15:40:59 Incomplete right bundle-branch block now present Electronically Signed On 01-11-2021 10:15:15 CDT by Joshua Vitale [email or web address] <ELECTRONICALLY SIGNED> By: Stepan Vitale MD, [facility] 01/11/21 1015 9 9 Stepan Vitale MD, [facility] /EPI
[2021-01-11 10:18] LABS: ALKALINE PHOSPHATASE 85 U/L (46-116); CK-MB MASS < 0.5 ng/mL (<0.5-3.6); LIPASE 147 U/L (73-393); MAGNESIUM 1.7 mg/dL (1.8-2.4); NT-PRO BRAIN NAT PEPTIDE 12 pg/mL (<300); SGOT 27 U/L (15-37); SGPT 42 U/L (30-65); TOTAL BILIRUBIN 0.3 mg/dL (<0.1-1.0); TOTAL PROTEIN 7.3 g/dL (6.4-8.2)
[2021-01-11 10:19] LABS: ABSOLUTE BASOPHILS 0.1 thou/uL (0.0-0.2); ABSOLUTE EOSINOPHILS 0.4 thou/uL (0.0-0.7); ABSOLUTE LYMPHOCYTES 2.9 thou/uL (0.8-5.3); ABSOLUTE MONOCYTES 0.2 thou/uL (0.0-1.2); ABSOLUTE NEUTROPHILS 3.4 thou/uL (1.6-8.1); ATYPICAL LYMPHS 8 %; METAMYELOCYTES 2 %; PLATELET ESTIMATE ADEQUATE
[2021-01-11 11:01] VITALS: BP 138/84
[2021-01-11 11:08] VITALS: BP 117/74
[2021-01-11 12:17] VITALS: BP 112/68
[2021-01-11 15:59] LABS: CHOLESTEROL 180 mg/dL (<200); HDL CHOLESTEROL 33 mg/dL (>40); LDL CHOLESTEROL 100 mg/dL (<100); TC:HDL 5.5 Ratio (Not establshd); TRIGLYCERIDE 235 mg/dL (<150); VLDL 47 mg/dL (<40)
[2021-01-11 16:09] LABS: SERUM ASSESSMENT Clear
[2021-01-11 16:26] VITALS: BP 110/58
--- NOTE | 2021-01-11 18:45 | NUR ---
PATIENT ADMITTED TO ROOM 221 FROM ER. ALERT AND ORIENTED X4. UP AD IKM, INSTRUCTED TO CALL FOR ANY ASSISTANCE WITH AMBULATING. CARDIOLOGY CONSULT FOR CHEST PAIN, SPOKE WITH DR. FLOWER AND ORDERS RECEIVED. INSTRUCTED TO GIVE PATIENT NITROSTAT FOR CHEST PAIN. GIVEN AT 1230 AND 1340, GOOD RELIEF NOTED. NITRO PASTE IN PLACE TO CHEST. PROJECT ENGINEERING DIRECTOR IN PLACE TRACING SR. PER DR. FLOWER ORDERS PLEASE FAX EKG AND TROPONIN RESULTS, FAXED ORDERED. HEPARIN DRIP STARTED THIS AFTERNOON PER CARDIOLOGY PROTOCOL ORDERED, PTT TO BE DRAWN AT 2024. NPO AFTER MIDNIGHT FOR POSSIBLE CARDIOLOGY PROCEDURE, PATIENT AND BOTH UPDATED ON PLAN OF CARE. PATIENT C/O HEADACHE THIS EVENING, PRN TYLENOL GIVEN ORDERED. ORIENTED TO CALL LIGHT.
[2021-01-11 20:00] VITALS: BP 114/72
[2021-01-12] VITALS (11 sets, daily range): BP systolic 108–172; BP diastolic 60–99
[2021-01-12 05:04] LABS: CALCIUM 8.7 mg/dL (8.5-10.1); CREATININE 1.2 mg/dL (0.6-1.3); POTASSIUM 3.8 mmol/L (3.5-5.1)
[2021-01-12 05:06] LABS: ABSOLUTE EOSINOPHILS 0.2 thou/uL (0.0-0.7); ABSOLUTE LYMPHOCYTES 3.1 thou/uL (0.8-5.3); ABSOLUTE MONOCYTES 0.6 thou/uL (0.0-1.2); ABSOLUTE NEUTROPHILS 3.8 thou/uL (1.6-8.1); BASOPHILS 0.5 %; EOSINOPHILS 2.7 %; HEMATOCRIT 40.4 % (42.0-52.0); HEMOGLOBIN 13.4 gm/dL (14.0-18.0); LYMPHOCYTES 40.1 %; MCHC 33.1 g/dL (28.0-37.0); MCV 84.6 fL (80.0-100.0); MONOCYTES 7.6 %; MPV 7.2 fl. (7.2-11.1); NUCLEATED RBCS 0 /100WBC; PLATELET COUNT* 298 thou/uL (150-400); POLYS 49.1 %; RBC 4.78 mil/uL (4.50-6.00); RDW-CV 14.3 % (10.5-14.5); WBC 7.7 thou/uL (4.0-11.0)
--- NOTE | 2021-01-12 06:52 | NUR ---
ASSUMED CARE OF PT AFTER REPORT AT 1930. PT A&OX4. VSS. PHYSICAL ASSESSMENT COMPLETED AND CHARTED. PT ON RA/CPAP AT HS. PT TRACING SR ON TELE. PT UPALIB TO RESTROOM. PT COMPLAINED OF CHEST PAIN-MED GIVEN PER JUN. PT INSTRUCTED ON NPO POST MIDNIGHT ORDERED. COMMUNICATES UNDERSTANDING. TITRATED HEPARIN DRIP PER PROTOCOL. PT ABLE TO SLEEP WELL ON BED. CALL LIGHT WITHIN REACH.
--- NOTE | 2021-01-12 10:38 | EKG ---
[place] [address] ELECTROCARDIOGRAM REPORT Name: LAURA MALDONADO Room: [address] ADM IN M.R.#: [id number] Admission: 01/11/21 Attend Phys: Jose Caldera, Discharge: Date of : 66 Date of Service: 01/11/21 1204 Report #: [id number] THIS REPORT FOR: //name// [facility] Test Date: 2021-01-11 Test Time: 12:04:25 Pat Name: LAURA MALDONADO Department: Room: [address] Gender: M Gift Packer: MELIA : 1970 Requested By: Stepan Vitale Order Number: [id number] Reading MD: Saroj Saravia Measurements Intervals [place] Rate: 59 P: -14 [place]: 156 QRS: -11 QRSD: 110 T: -2 QT: 400 QTc: 397 Interpretive Statements Sinus rhythm Low voltage, precordial leads RSR' in V1 or V2, right VCD or RVH Borderline T abnormalities, inferior leads Compared to ECG 01/11/2021 09:20:16 Low QRS voltage now present Electronically Signed On 01-12-2021 10:38:15 CDT by Saroj Saravia [email or web address] <ELECTRONICALLY SIGNED> By: Saroj Saravia MD, FACC 01/12/21 1038 1204 1204 Saroj Saravia MD, [facility] /EPI
--- NOTE | 2021-01-12 12:24 | NUR ---
CM COMPLETED THE INITIAL ASSESSMENT WITH THE PT WHO INDICATED HE LIVES AT HOME WITH . PT IS ACTIVE AND INDEPENDENT WITH CARES. PT HAS CANE AND WALKER. PT DENIES HX WITH HH OR SNF.
--- NOTE | 2021-01-12 12:24 | CARD ---
[address] [address] CARDIAC CATH REPORT Name: ALURA MALDONADO Room: 221-P ADM IN M.R.#: [id number] Admission: 01/11/21 Attend Phys: Jose Caldera MD Discharge: Date of : 66 Report #: [id number] THIS REPORT FOR: cc: Shiela Jeffery Maggie M. 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 The right wrist was infiltrated with 2% Lidocaine subcutaneous anesthesia. IV conscious sedation was used throughout procedure with appropriate monitoring and was performed in the presence of a registered nurse who was an independent trained observer other than the physician performing the procedure. The right wrist accessed via ultrasound guidance. A 6FR. slender glide sheath was inserted into the right radial artery. Coronary angiography was performed using coronary diagnostic catheters. The right [place] [address] CARDIAC CATH REPORT Name: LAURA MALDONADO Room: [address] IN ..#: [id number] Admission: 01/11/21 Attend Phys: oJse Caldera MD Discharge: Date of : 66 Report #: [id number] visualized with a Diagnostic 6FR JR4 catheter. The left coronary system was accessed and visualized with a Diagnostic 6FR JL4 catheter. The left ventricle was accessed and visualized with a Diagnostic 6FR pigtail catheter. Left ventricular/Aortic Valve gradient assessed via catheter pullback. Left ventriculogram was performed in CHIDI projection. Closure device was deployed with a 6 Fr vascband. The patient tolerated the procedure well and there were no complications associated with the procedure. There was no hematoma. Intraoperative Conscious Sedation Sedation start time: 941 Case end Time: 1006 Versed 2.0 mg Fluoro Time: 3.4 minutes Dose: DAP 85661 cGycm2 Contrast Type and Amount: 90ml visipague Coronary Angiography The patient's coronary anatomy is right dominant. Diagnostic Cath Left Main 0% stenosis LAD 30% proximal stenosis and 50% mid stenosis Circumflex 50% mid stenosis OM1 lasrge vessel with proximal stent that had no restenosis Right Coronary 40% mid stenosis Left Ventriculography The left ventricle is normal in size with normal contractility. The left ventricular ejection fraction is estimated to be 50-55%. Left ventricular wall motion abnormalities are not present. There is no mitral insufficiency. Hemodynamics The left ventricular end diastolic pressure is 10 mmHg. There was no gradient across the aortic valve upon pullback. Pullback from the left ventricle to the aorta revealed no gradient across the aortic valve. Conclusion 1. no significant restenosis of a stent in the first marginal branch of the circumflex artery. 2. LVEF 50-55% [place] [address] CARDIAC CATH REPORT Name: MALDONADOLAURATRACE HERNÁNDEZ Room: [address] IN [facility].#: [id number] Admission: 01/11/21 Attend Phys: Jose Caldera MD Discharge: Date of : 66 Report #: [id number] 3. suspect noncardiac chest pain Recommendations Aggressive Medical Therapy <ELECTRONICALLY SIGNED> By: Saroj Saravia MD, FACC 01/12/21 1223 1223 1223Dslim Saravia MD, FAC /INF
--- NOTE | 2021-01-12 13:57 | CON ---
[address] [address] CONSULTATION Name: LAURA MALDONADO Room: [address] ADM IN M.R.#: [id number] Admission: 01/11/21 Attend Phys: Jose Caldera MD Discharge: Date of : 66 Report #: [id number] THIS REPORT FOR: cc: Shiela Jeffery Maggie M. DO Blick, David R. MD [facility] ~ cc: Shiela Jeffery DO DATE OF CONSULTATION: 01/12/2021 CARDIOLOGY CONSULTATION HISTORY OF PRESENT ILLNESS: The patient is a 50-year-old white male who I was asked to see in the hospital today after he complained of chest pain. The patient presented in 01/2019 with chest pain. My partner, Dr. Lopez, placed a stent in the circumflex artery via the right radial artery. He has done well since that time. He is not very active because of arthritis in his knees. However, he was doing well until he woke up yesterday morning, had a pressure in his chest, went into his left arm. He felt short of breath. There is no diaphoresis. He denies any recent fever, cough or bleeding. He had no belching episode. There was no trauma to his chest. He denied a rash. He does note occasional dyspnea on exertion, but denied any edema. He has had no palpitations or syncope. PAST MEDICAL HISTORY: He has had previous surgery on his right inner ear in the past. He has a history of hypertension, hyperlipidemia, manic depressive illness, sleep apnea. He uses a CPAP. MEDICATIONS: He does have a history of taking Diamox, aspirin, Lipitor, Wellbutrin, Klonopin, TriCor, Flonase, metoprolol, niacin, Zyprexa, prazosin, Effexor. ALLERGIES: He has no known drug allergies. FAMILY HISTORY: His mom had heart disease. SOCIAL HISTORY: He is . He and his live here in [place]. 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 He is now disabled secondary to Meniere's disease. No smoking or alcohol abuse. REVIEW OF SYSTEMS: No history of a stroke. He does have sleep apnea. No history of asthma, liver disease, kidney disease, cancer or chronic skin conditions. He does have a history of manic depressive illness and sees a psychiatrist[place] [address] CONSULTATION Name: LAURA MALDONADO Room: [address]#: [id number] Admission: 01/11/21 Attend Phys: Jose Caldera MD Discharge: Date of : 66 Report #: [id number] PHYSICAL EXAMINATION: GENERAL: Revealed a large male who is 6 feet 2 inches, weight 275 pounds. VITAL SIGNS: He had a blood pressure of 118/72, pulse 74. He is afebrile. HEENT: He was anicteric. Conjunctivae pink. Mucous membranes moist. NECK: Veins not distended. No carotid bruits. CHEST: Clear to auscultation. HEART: Regular rate and rhythm. ABDOMEN: Soft. EXTREMITIES: Had no edema. Dorsalis pedis pulse 3+ bilaterally. SKIN: Cool and dry. NEUROLOGIC: Nonfocal. LABORATORY DATA: ECG in the emergency room yesterday showed a sinus rhythm, incomplete right bundle branch block. There are no ST or T-wave changes noted. He had a portable chest x-ray performed in the emergency room yesterday that showed normal heart size and clear lung glover. He actually had a previous MRA of the carotid arteries in 2018 that showed 50% narrowing of the right internal carotid artery. Previous MRI of the head back in 2018 showed no acute abnormality. His lab work in the emergency room yesterday, creatinine 1.2. High sensitivity troponin was 4, repeat was only 5. His cholesterol 180, triglyceride 225, HDL 33, LDL 100. His hemoglobin 13.4. His COVID antigen stat test was negative. IMPRESSION AND RECOMMENDATIONS: 1. Coronary artery disease. Previous stent. 2. Symptoms of crescendo angina. Recommend repeat cardiac catheterization. 3. Hypertension. The patient is on beta liborio. 4. Hyperlipidemia. The patient is on a statin drug for high cholesterol and fenofibrate for high triglycerides. 5. Manic depressive illness. The patient is followed by Psychiatry. 6. Obesity. 7. Arthritis in his knees. <ELECTRONICALLY SIGNED> By: Saroj Saravia MD, [facility] 01/12/21 1357 0730 0759Davijackson Saravia MD, FAC /nt
--- NOTE | 2021-01-12 20:03 | NUR ---
[id number]: t-BAND IN PLACE UNTIL 1230 AT WHICH TIME THE PRESSURE WAS COMPLETELY REMOVED AT A RATE OF EVERY 15 TO 30 MINUTES 2 ML AT A TIME PER SYRINGE PROVIDED BY [facility].
== END 2021-01-12 16:50 | disposition home or self-care (01) | DRG 287 ==
LOC: M.ERS 09:20 → M.TBA-ER 09:57 → M.2W 09:57
PROVIDERS: Family Medicine; Internal Medicine; ADMIT Internal Medicine; ATTEND Internal Medicine
PROC: 4A023N7 Measurement of Cardiac Sampling and Pressure, Left Heart, Percutaneous Approach (ICD-10-PCS; principal; 2021-01-12)
PROC: B2151ZZ Fluoroscopy of Left Heart using Low Osmolar Contrast (ICD-10-PCS; principal; 2021-01-12)
PROC: B2111ZZ Fluoroscopy of Multiple Coronary Arteries using Low Osmolar Contrast (ICD-10-PCS; principal; 2021-01-12)
DX: I25.110 Atherosclerotic heart disease of native coronary artery with unstable angina pectoris (principal); Z20.822 Contact with and (suspected) exposure to COVID-19; F31.9 Bipolar disorder, unspecified; E78.5 Hyperlipidemia, unspecified; E66.9 Obesity, unspecified; Z95.5 Presence of coronary angioplasty implant and graft

== ENCOUNTER 2021-02-19 09:06 | Observation (INO) | payer OTHER, MEDICARE ==
[~2021-02-19] VITALS: Ht 188 cm; Wt 119.3 kg
[2021-02-19] VITALS (12 sets, daily range): BP systolic 124–138; BP diastolic 75–85
--- NOTE | ~2021-02-19 | H ---
[address] [address] HISTORY AND PHYSICAL Name: MALDONADOLAURATRACE HERNÁNDEZ Room: [address] [place]#: [id number] Admission: 02/19/21 Attend Phys: Medhat Lopez MD, Discharge: 02/20/21 Date of : 66 Report #: [id number] THIS REPORT FOR: cc: Shiela Jeffery Maggie M. DO [facility],Medical Records Staff ~ Please refer to the History and Physical performed in the physician's office. By: 0845Medical Records Staff JACK /SAMMI
[2021-02-19 09:37] LABS: HEMATOCRIT 42.7 % (42.0-52.0); HEMOGLOBIN 14.3 gm/dL (14.0-18.0); MCH 28.2 pg (26.0-34.0); MCHC 33.4 g/dL (28.0-37.0); MCV 84.5 fL (80.0-100.0); RBC 5.05 mil/uL (4.50-6.00); RDW-CV 14.1 % (10.5-14.5); WBC 5.8 thou/uL (4.0-11.0)
[2021-02-19 09:47] LABS: ALBUMIN 4.5 g/dL (3.4-5.0); ALKALINE PHOSPHATASE 86 U/L (46-116); ANION GAP 10 mmol/L (7-16); BUN 20 mg/dL (7-18); CALCIUM 9.3 mg/dL (8.5-10.1); CHLORIDE 103 mmol/L (98-107); CHOLESTEROL 163 mg/dL (<200); CO2 26 mmol/L (21-32); CREATININE 1.4 mg/dL (0.6-1.3); GLUCOSE 101 mg/dL (70-99); HDL CHOLESTEROL 38 mg/dL (>40); LDL CHOLESTEROL 85 mg/dL (<100); POTASSIUM 4.5 mmol/L (3.5-5.1); SERUM ASSESSMENT Clear; SGOT 22 U/L (15-37); SGPT 34 U/L (30-65); SODIUM 139 mmol/L (136-145); TC:HDL 4.3 Ratio (Not establshd); TOTAL BILIRUBIN 0.4 mg/dL (<0.1-1.0); TOTAL PROTEIN 8.3 g/dL (6.4-8.2); TRIGLYCERIDE 201 mg/dL (<150); VLDL 40 mg/dL (<40)
[2021-02-19] MEDS ORDERED: ACETAZOLAMIDE250 M1 PO (09:58)
[2021-02-19] MEDS ORDERED: LIPITOR80 MG PO (09:59)
[2021-02-19] MEDS ORDERED: VITAMIN D3250 MC1 PO (10:02)
[2021-02-19] MEDS ORDERED: FISH OIL 1,0001 EAC9 PO (10:05)
[2021-02-19] MEDS ORDERED: COLACE100 MG PO (10:07)
[2021-02-19] MEDS ORDERED: IMDUR 30 MG TAB30 M1 PO (10:09)
[2021-02-19] MEDS ORDERED: VITAMIN B-121000 MC2 SUBLING (10:10)
[2021-02-19] MEDS ORDERED: GLUCOSAMINE &1 EACH PO (10:11)
[2021-02-19] MEDS ORDERED: VITAMIN B-6100 MG PO (10:19)
[2021-02-19] MEDS ORDERED: OLANZAPINE15 M1 PO (10:23)
[2021-02-19] MEDS ORDERED: FLONASE 0.05%50 MCG NARES (10:24)
[2021-02-19 10:35] LABS: INR 1.1; PROTIME 10.9 Seconds (9.20-11.50)
--- NOTE | 2021-02-19 12:46 | CARD ---
[address] [address] CARDIAC CATH REPORT Name: LAURA MALDONADO Room: [address] M.RKomal#: [id number] Admission: 02/19/21 Attend Phys: Medhat Lopez MD, Discharge: Date of : 66 Report #: [id number] THIS REPORT FOR: cc: Shiela Jeffery Maggie M. DO Holkins,Medhat Rivas MD [facility] ~ APPROVED REPORT Study performed: 02/19/2021 10:23:26 Patient Details Patient Status: Out-Patient Room #: The patient is a 50 year-old male Event Personnel Conner Delgadillo RTR Monitor, Cara Greer RTR Scrub, Janey Arteaga RN RN, Freddy Alatorre Licensing Representative, Medhat Lopez Dry Wall Applicator Procedures Performed Left Heart Cath w/or w/o Coronaries [id number] [facility] Place w/wo Plasty Single LAD [id number] Hemostasis w/ Angioseal Admission/Lab Medications/Medications given during procedure Fentanyl IV 25 mcg, Fentanyl IV 25 mcg, Midazolam (Versed) IV 2 mg, Angiomax IV 18 ml, Angiomax IV 21.82 ml per hr, Angiomax IV 21.82 ml per hr, Aspirin PO 162 mg, Effient PO 60 mg Procedure Narrative The patient was brought electively to the Cardiac Catheterization Laboratory and was prepped and draped in a sterile manner. The right femoral was infiltrated with 2% Lidocaine subcutaneous anesthesia. IV conscious sedation was used throughout procedure with appropriate monitoring and was performed in the presence of a registered nurse who was an independent trained observer other than the physician performing the procedure. A Vernon 6 FR sheath was inserted into the right femoral artery. Coronary angiography was performed using coronary diagnostic catheters. The right coronary system was accessed and visualized with a Diagnostic JR4 6Fr catheter. The left coronary system was accessed and visualized with a Diagnostic JL4 6Fr catheter. The left ventricle was accessed and visualized with a Diagnostic JR4 6Fr catheter. Left ventricular/Aortic Valve gradient assessed via catheter pullback. Pre-demployment femoral angiogram was performed . Closure device was deployed with a 6 [place] [address] CARDIAC CATH REPORT Name: LAURA MALDONADO [address]: [address] [id number] Admission: 02/19/21 Attend Phys: Medhat Lopez MD, Discharge: Date of : 66 Report #: [id number] patient tolerated the procedure well and there were no complications associated with the procedure. There was no hematoma. Intraoperative Conscious Sedation Sedation start time: 1047 Case end Time: 1115 Fentanyl 25 mcg Versed 2 mg Fluoro Time: 6.6 minutes Dose: DAP 703396 cGycm2 1614.69 mGy Contrast Type and Amount: Visipaque 160 mL Diagnostic Cath Left Main The left main coronary artery is normal and bifurcates into a left anterior descending and circumflex coronary artery. LAD The left anterior descending coronary artery has a focal 75% narrowing in the midportion. The remainder the vessel is free of significant disease. Diagonal 1 The first diagonal branch appears normal. Diagonal 2 The second diagonal branch appears normal. Circumflex The circumflex coronary artery appears normal in its proximal mid and distal portion. OM1 A moderate sized first obtuse marginal branch appears normal. OM2 A small second obtuse marginal branch appears normal. OM3 A moderate sized branched third obtuse marginal branch appears normal. Right Coronary The right coronary artery is a large and dominant vessel with minimal 10% plaquing proximally. The mid and distal vessel are free of significant disease. R PDA A moderate-sized right PDA appears normal. RPLV A large branch right posterior lateral LV branch appears normal. Left Ventriculography Left Ventriculography was not performed. Hemodynamics The aortic pressure is 115/73 mmHg with a mean of 43 mmHg. The left ventricular pressure is 115/2 mmHg with a mean of mmHg. The left ventricular end diastolic pressure is 16 mmHg. PCI Technique Lesion Anticoagulation was achieved with Angiomax. 18mL Percutaneous coronary intervention was performed [place] [address] CARDIAC CATH REPORT Name: LAURA MALDONADO Room: [address] M.R.#: [id number] Admission: 02/19/21 Attend Phys: Medhat Lopez MD, Discharge: Date of : 66 Report #: [id number] descending artery segment. The lesion stenosis prior to intervention was 75% with CORY 3 flow. A 6F XB LAD 3.5 Guide Catheter was used to engage the Left ostium. A IG: BMW 190cm Interventional Guidewire was used to cross the lesion. BALLOON DILATION A Balloon catheter Trek RX 2.5 X 12 was inserted and inflated up to 10.00atm for 15seconds. STENT DEPLOYMENT A drug-eluting stent [place] RX Stent 2.23J52dp was inserted and inflated up to 12.00atm for 10seconds. Additional Inflation: 12.00atm for 8seconds. Final angiography reveals 0 % stenosis with CORY 3 flow. Conclusion 1. Significant stenosis in the mid left anterior descending coronary artery as outlined above. 2. Minimally elevated left ventricular end-diastolic pressure consistent with acute diastolic heart failure. 3. Succesful PCI with deployment of a drug eluting stent in the mid LAD with 0% residual narrowing and CORY 3 flow to the distal LAD Recommendations Cardiac Risk Reduction Program Aggressive Medical Therapy 1. Percutaneous coronary mention to the mid left anterior descending coronary artery. 2. Continue aggressive risk factor modification. Medications Administered Aspirin (any) Prasugrel Diagnostic Cath Approved by: Freddy Alatorre MD Date/Time: 02/19/2021 12:45:02 <ELECTRONICALLY SIGNED> By: Medhat Lopez MD, [facility] 02/19/21 1245 1245 1245Medhat Lopez MD, FAC /INF
--- NOTE | 2021-02-19 14:03 | EKG ---
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 : 1970 Requested By: Freddy Alatorre Order Number: [id number] Austin MD: Freddy Alatorre Measurements Intervals [place] Rate: 61 P: 39 SD: 164 QRS: 0 QRSD: 115 T: 6 QT: 383 QTc: 386 Interpretive Statements Sinus rhythm Nonspecific intraventricular conduction delay Low voltage, precordial leads Baseline wander in lead(s) V5 Compared to ECG 01/11/2021 12:04:25 Intraventricular conduction delay now present Right ventricular hypertrophy no longer present T-wave abnormality no longer present Electronically Signed On 02-19-2021 14:03:17 CDT by Freddy Alatorre [email or web address] <ELECTRONICALLY SIGNED> By: Freddy Alatorre MD, FACC 02/19/21 1403 1016 1016 Freddy Alatorre MD, FAC /EPI
--- NOTE | 2021-02-19 14:04 | EKG ---
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
[2021-02-20] VITALS: BP 117/78
[2021-02-20 04:00] VITALS: BP 92/53
[2021-02-20] MEDS ORDERED: EFFIENT10 MG PO (08:14)
[2021-02-20 09:11] VITALS: BP 92/53
[2021-02-20 09:14] VITALS: BP 92/53
[2021-02-20 09:16] LABS: HEMATOCRIT 43.1 % (42.0-52.0); HEMOGLOBIN 14.1 gm/dL (14.0-18.0); MCHC 32.7 g/dL (28.0-37.0); MCV 85.7 fL (80.0-100.0); MPV 7.1 fl. (7.2-11.1); RBC 5.02 mil/uL (4.50-6.00); RDW-CV 14.7 % (10.5-14.5); WBC 6.8 thou/uL (4.0-11.0)
[2021-02-20 09:18] LABS: CALCIUM 9.4 mg/dL (8.5-10.1); CREATININE 1.4 mg/dL (0.6-1.3); POTASSIUM 4.5 mmol/L (3.5-5.1)
--- NOTE | 2021-02-20 17:23 | EKG ---
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
--- NOTE | 2021-02-20 17:27 | EKG ---
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1970 Requested By: Freddy Alatorre Order Number: [id number] Reading MD: Freddy Alatorre Measurements Intervals [place] Rate: 56 P: 30 ID: 165 QRS: -10 QRSD: 115 T: -4 QT: 403 QTc: 389 Interpretive Statements Sinus rhythm Low voltage, precordial leads Borderline T abnormalities, anterior leads Compared to ECG 02/19/2021 16:10:55 Low QRS voltage now present T-wave abnormality now present Electronically Signed On 02-20-2021 17:27:08 CDT by Freddy Alatorre [email or web address] <ELECTRONICALLY SIGNED> By: Freddy Alatorre MD, FACC 02/20/21 1727 0 0 Freddy Alatorre MD, FACC /EPI
--- NOTE | 2021-02-20 17:45 | D ---
[address] [address] DISCHARGE SUMMARY Name: LAURA MALDONADO Room: [address] [place] Saldana#: [id number] Admission: 02/19/21 Attend Phys: Medhat Lopez MD, Discharge: 02/20/21 Date of : 66 Report #: [id number] THIS REPORT FOR: cc: Shiela Jeffery Maggie M. DO Liston, Michael J. MD [facility] ~ cc: Shiela Jeffery DO, John M. Holkins, MD [facility] DATE OF DISCHARGE: 02/20/2021 DISCHARGE DIAGNOSES: 1. Unstable angina. 2. Coronary artery disease. 3. Essential hypertension. 4. Hyperlipidemia. PROCEDURES DURING HOSPITALIZATION: 1. Coronary angiography. 2. Left heart catheterization. 3. Coronary intervention with drug-eluting stent placement to the mid left anterior descending coronary artery. HOSPITAL COURSE: The patient was brought to the hospital for coronary intervention after having continued mid central chest discomfort radiating to the left arm. Catheterization revealed a moderate 70% mid LAD stenosis for which the patient underwent percutaneous coronary intervention with placement of a 2.75 x 12 mm stent with excellent results. The patient tolerated the procedure well without complication. The right femoral artery was used for access. The patient had no significant hematoma or other access site issues. The patient is being discharged uneventfully. DISCHARGE MEDICATIONS: Will include aspirin 81 mg daily, Effient 10 mg daily, atorvastatin 80 mg daily, Imdur 30 mg daily, prazosin 2 mg at bedtime, olanzapine 15 mg at bedtime, niacin 500 mg b.i.d., Toprol-XL 37.5 mg b.i.d., docusate 200 mg b.i.d., acetazolamide 250 mg b.i.d., Tylenol 650 mg at bedtime, fluticasone nasal spray as directed, fish oil 1000 mg daily, fenofibrate 160 mg daily, vitamin D 2500 mcg daily, clonazepam 0.5 mg daily, vitamin D 1000 units daily, magnesium oxide 800 mg daily. DISPOSITION: The patient will follow up in Cardiology Clinic in 4 weeks. <ELECTRONICALLY SIGNED> By: Freddy Alatorre MD, FACC 02/20/21 1745 0803 0901[facility]atorre MD, FACC /nt
== END 2021-02-20 09:48 | disposition home or self-care (01) ==
LOC: M.CL 09:06 → M.TBA-CV 11:22 → M.2W 14:34
PROVIDERS: Internal Medicine Cardiovascular Disease; Registered Nurse; ADMIT Internal Medicine; ATTEND Internal Medicine
DX: I25.110 Atherosclerotic heart disease of native coronary artery with unstable angina pectoris (principal); Z20.822 Contact with and (suspected) exposure to COVID-19; I10 Essential (primary) hypertension; E78.5 Hyperlipidemia, unspecified; F41.9 Anxiety disorder, unspecified; F31.9 Bipolar disorder, unspecified; K21.9 Gastro-esophageal reflux disease without esophagitis; Z79.82 Long term (current) use of aspirin; Z79.899 Other long term (current) drug therapy